=== PATIENT | female | born 1950 | race Caucasian/White ===

== ENCOUNTER 2019-06-04 12:41 | Outpatient (CLI) | payer MEDICARE, OTHER ==
[2019-06-04] MEDS ORDERED: Iopamidol 370 76% 100 ML VIAL ONE (13:38)
--- NOTE | 2019-06-04 15:10 | CT ---
POSTCONTRAST SOFT TISSUE NECK CT: HISTORY: Thyroid goiter. Half of the thyroid was removed in 2015. Difficulty swallowing. Evaluate for possi ble thyroid mass/thyroid recurrence. COMPARISON: None. CORRELATION: Thyroid ultrasound 01/21/2016. FINDINGS: Visualized brain parenchyma is unremarkable. Adequate aeration of the visualized paranasal sinuses and mastoid air cells. Aerodigestive tract is patent. No mucosal abnormality. Epiglottis has a normal caliber. Preepiglot tic fat is preserved. No obvious masses in the oral cavity. Midline fatty raphae of the tongue is p reserved. Symmetric attenuation of the salivary glands. Symmetric attenuation of the paraspinal muscles. The supraglottic, glottic, and subglottic larynx are unremarkable. No evidence of lymphadenopathy by size criteria. There are bilateral borderline soft tissue neck lym ph nodes. Grossly, the great vessels of the neck are patent. Evaluation is limited due to technique. No acute abnormality in the upper mediastinum or lung apices. Cervical spine vertebral body height is maintained. There is no fracture. There is a large heterogeneous right thyroid lobe with multiple hypodensities. Based on the coronal images, the right thyroid lobe measures at least 7 cm in the craniocaudal dimension. There appears t o be thyroid tissue in the region of the left thyroid bed, measuring 3.5 cm in craniocaudal dimension . IMPRESSION: Enlarged heterogeneous right thyroid lobe. There appears to be thyroid tissue in the left thyroid lo be as well. POS: [facility]
== END 2019-06-04 12:42 | disposition home or self-care (01) ==
LOC: BICCT 12:41
PROVIDERS: ATTEND Specialist
DX: E04.1 Nontoxic single thyroid nodule (principal)
CPT/HCPCS: 70491; 82565; Q9967

== ENCOUNTER 2024-03-28 05:35 | Day surgery (SDC) | payer MEDICARE, OTHER ==
[2024-03-27 12:29] VITALS: BMI 27.1
[2024-03-28] MEDS ORDERED: PROPOFOL 20 ML ONE (06:18)
[2024-03-28] MEDS ORDERED: fentaNYL PF 100 MCG/2 ML SYRINGE ONE (06:18)
[2024-03-28] MEDS ORDERED: Lidocaine 1% PF 5 ML VIAL ONE (06:18)
[2024-03-28] MEDS ORDERED: Rocuronium Bromide 10 MG/ML (10ML VIAL) ONE (06:18)
[2024-03-28] MEDS ORDERED: EPINEPHrine 1 MG/ML VIAL ONE (06:24)
[2024-03-28] MEDS ORDERED: Bupivacaine 0.25% HCL 30 ML VIAL ONE (06:24)
[2024-03-28] MEDS ORDERED: Thrombin 5000 UNITS/5 ML VIAL ONE (06:24)
[2024-03-28] MEDS ORDERED: CEFAZOLIN 2 GM VIAL ONE (06:36)
[2024-03-28] MEDS ORDERED: Bupivacaine PF 0.5% 30 ML VIAL ONE (06:40)
[2024-03-28 06:47] LABS: Anion Gap 14 mmol/L (10-20); BUN (Urea Nitrogen) 14 mg/dL (9.8-20.1); Calc. Creatinine Clearance 71 mL/min (70-130); Calcium 9.5 mg/dL (7.8-10.44); Carbon Dioxide 22 mmol/L (23-31); Chloride 107 mmol/L (98-107); Estimated GFR 79; Glucose 116 mg/dL (83-110); Potassium 4.1 mmol/L (3.5-5.1); Sodium 139 mmol/L (136-145)
[2024-03-28] MEDS ORDERED: Sterile Water 10 ML ONE (06:49)
[2024-03-28] MEDS ORDERED: Esmolol 100 MG/10 ML VIAL ONE (07:43)
[2024-03-28] MEDS ORDERED: PHENYLEPHRINE-NS 100 MCG/ML 10 ML SYRINGE ONE (07:43)
[2024-03-28] MEDS ORDERED: Ondansetron PF 4 MG/2 ML Vial ONE (07:51)
[2024-03-28] MEDS ORDERED: Dexamethasone 20 MG/5 ML VIAL ONE (07:51)
[2024-03-28] MEDS ORDERED: SUGAMMADEX SODIUM 200 MG/2 ML VIAL ONE (08:12)
[2024-03-28] MEDS ORDERED: fentaNYL 50 mcg/mL 1 mL Vial ONE ×2 (08:32→09:05)
[2024-03-28] MEDS ORDERED: HYDROmorphone 0.5 MG/0.5 ML SYRINGE ONE (08:32)
[2024-03-28] MEDS ORDERED: Promethazine HCl 25 MG/ML VIAL ONE (10:02)
== END 2024-03-28 11:35 | disposition home or self-care (01) ==
LOC: SDC 05:35
PROVIDERS: ATTEND Neurological Surgery
PROC: 01NB0ZZ Release Lumbar Nerve, Open Approach (ICD-10-PCS; principal; 2024-03-28)
DX: M48.061 Spinal stenosis, lumbar region without neurogenic claudication (principal); M54.16 Radiculopathy, lumbar region; M19.90 Unspecified osteoarthritis, unspecified site; Z90.49 Acquired absence of other specified parts of digestive tract; Z90.89 Acquired absence of other organs; Z78.0 Asymptomatic menopausal state; Z91.048 Other nonmedicinal substance allergy status; Z88.5 Allergy status to narcotic agent; Z79.899 Other long term (current) drug therapy
CPT/HCPCS: 63047; 63048; 80048; 93005; J0171; J0665; J1100; J1171; J2405; J2550; J2704; J3010; 93010